=== PATIENT | male | born 1970 | race Caucasian/White ===

== ENCOUNTER 2024-11-25 12:27 | Emergency (ER) | payer MEDICAID, SELFPAY ==
[2024-11-25 13:14] VITALS: BP 121/82; PULSE 92; RESP 18; TEMP 36.8; O2SAT 98; BMI 31.0
--- NOTE | 2024-11-25 13:22 | EDNOTE_ITS ---
ED Recheck Abnl Lab Rx-RME/HPI General Chief Complaint: Recheck/Abnormal Lab/Rx Stated Complaint: Blood sugar high, tired, no power in his legs Time Seen by Provider: 11/25/24 12:42 Arrival date/time: 11/25/24 12:27 RME / HPI RME / HPI narrative: 54-year-old male patient was brought in by family after patient was seen by PCP for evaluation evaluation regarding hyperglycemia. Patient's was noted to have a blood sugar that is elevated patient does not know the number, associated with generalized body weakness, no power in both legs, patient is ambulatory however. Patient also complained of abdominal pain has been ongoing for the last few days, severity moderate. Denies any fever denies any vomiting diarrhea or constipation. Patient is taking his diabetic medication high blood pressure medication with good compliance. Related Data Previous Rx's ?Medication ?Instructions ?Recorded amoxicillin 875 mg-potassium 1 tab PO BID #20 tabs 04/11 clavulanate 125 mg tablet dicyclomine 20 mg tablet 20 mg PO TID PRN abdominal p ain 11/25/24 #20 tabs Allergies Allergy/AdvReac Type Severity Reaction Status Date / Time No Known Allergies Allergy Verified 11/25/24 12:32 Review of Systems Review of Systems Narrative Review of Systems: Review of system reviewed and within normal limits except mentioned in HPI ED Exam Narrative Physical exam: VITAL SIGNS: Reviewed. GENERAL APPEARANCE: Alert and interactive, follows commands, no acute distress, HEAD AND FACE: Non-traumatic. ENT: PERRL, pink conjunctivitis, eyelid no trauma, Mucous membrane moist. NECK: Supple, nontender, no nuchal rigidity. CHEST: No tenderness, no crepitus, no paradoxical movement, no retractions. LUNGS: Clear, well ventilated, symmetric, no rales, no wheezing, no ronchi, no stridor, good breath sounds bilaterally. HEART: Regular rate, regular rhythm, no murmur, no gallops. ABDOMEN: Soft, positive bowel sounds, nondistended, no guarding, nontender, no rebound, no masses, RECTAL: Deferred. GENITAL: Deferred. NEUROLOGICAL: Gross motor function intact sensory function intact, Appropriate for age. MUSCULOSKELETAL: low back nontender, full range of motion. EXTREMITIES: Nontender, full range of motion. SKIN: Color pink, dry, no rash, no lacerations, no abrasions, no contusions. LYMPHATICS: Deferred. Course Quality Measures none Orders Category Date Time Status CT Screening NOW Care 11/25/24 13:26 Active EKG (ED ONLY) *Do not use* NOW Care 11/25/24 13:[address] abdomen pelvis w con Stat Exams 11/25/24 13:26 Completed EKG (ED Only) Stat Exams 11/25/24 13:25 Draft XR chest 1V Stat Exams 11/25/24 13:24 Completed Acetone [Beta Hydroxybutyrate] Stat Lab 11/25/24 13:48 Completed CBC Stat Lab 11/25/24 13:48 Completed Comprehensive Metabolic Panel Stat Lab 11/25/24 13:48 Completed Hemoglobin A1C [Glycohemoglobin w (eAG)] Stat Lab 11/25/24 13:48 Completed Partial Thromboplastin Time Stat Lab 11/25/24 13:48 Completed Urinalysis, C/S if Indicated Stat Lab 11/25/24 14:36 Completed Amoxicillin/Pot Clav 875 [Augmentin 875] Med 11/25/24 16:56 Discontinued 1 tab PO X1 ONE Ringers Lactated 1000 ml [Lactated Ringers] 1,000 ml Med 11/25/24 13:25 Discontinued IV 999 mls/hr Vital Signs Vital signs: Vital Signs Temperature 98.3 F 11/25/24 13:14 Pulse Rate 92 11/25/24 13:14 Respiratory Rate 18 11/25/24 13:14 Blood Pressure 121/82 11/25/24 13:14 Pulse Oximetry (%) 98 11/25/24 13:14 Oxygen Delivery Method Room Air 11/25/24 13:14 Recheck / Abnormal Lab / Rx MDM Narrative MDM Narrative:: 54-year-old male patient was brought in by family after patient was seen by PCP for evaluation evaluation regarding hyperglycemia. Patient's was noted to have a blood sugar that is elevated patient does not know the number, associated with generalized body weakness, no power in both legs, patient is ambulatory however. Patient also complained of abdominal pain has been ongoing for the last few days, severity moderate. Denies any fever denies any vomiting diarrhea or constipation. Patient is taking his diabetic medication high blood pressure medication with good compliance. Patient's workup today showed no leukocytosis however patient's hemoglobin A1c was noted to be 13.2 blood sugar of 326. Patient received IV fluids. CT scan of the abdomen and pelvis showed Minimal acute diverticulitis distal descending colon, no peridiverticular abscess Small pulmonary nodules as above, suggest follow-up Chest x-ray came back unremarkable. EKG showed normal sinus rhythm, ventricular rate of 89 bpm, no ST segment elevation or depression noted. Patient received IV fluids, and Augmentin. Prior to discharge patient told me that his symptoms is better. Will get sent home on Augmentin for 10 days. Was advised to decrease intake of carbohydrates to control the diabetes mellitus. Patient data External records reviewed:: None Clinical information provided by:: patient Social determinants that could affect healthcare access:: none Patient has the following chronic illnesses:: Diabetes mellitus hypertension How is presenting disease/condition affected by chronic disease/condition?: exacerbated by Evaluation data The following diagnostics were reviewed and interpreted by me:: radiology exam(s) Lab and/or radiology exams considered but not ordered:: None Interpretation Summary: See results in [facility] Medications / Prescriptions Medications or Prescriptions considered but not ordered:: None Medication administrations:: Medication Administration History Discontinued Medications Amoxicillin/Clavulanate Potassium (Amoxicillin/Pot Clav 875 Tablet) 1 tab PO X1 ONE Stop: 11/25/24 16:57 Last Admin: 11/25/24 17:17 Dose: 1 tab Documented By: TAMAR Lactated Ringer's (Lactated Ringers) 1,000 mls @ 999 mls/hr IV .Q1H1M ONE Stop: 11/25/24 14:25 Last Infusion: 11/25/24 16:44 Dose: Infused Documented By: Admin: 11/25/24 15:31 Dose: 999 mls/hr Documented By: TAMAR Augmentin, IV fluids Consultations Consultation(s) initiated? (list below): No Diagnosis Recheck Differential Diagnosis: other (Poor diabetes control, hyperglycemia, and abdominal pain, acute diverticulitis) Most likely diagnosis given after review of the tests above:: Acute diverticulitis, poor diabetes control Admission Indicated Admission indicated?: not indicated Admission Request Was there a request for admission?: No Disposition Plan Disposition Plan: Discharge Discharge Attestation Discharge Attestation: The patient was given an opportunity to ask questions and understood the discharge instructions. Discharge instructions specifically effects, indications for sooner follow up or return to the emergency department, and the expected course of current diagnosis. Patient condition: Stable Discharge Plan Plan Patient Disposition: HOME (Self Care) Discharge Disposition comment: stable Prescriptions/Referrals Prescriptions/Med Rec: New amoxicillin-pot clavulanate 875-125 mg tablet 1 tab PO BID Qty: 20 0RF dicyclomine 20 mg tablet 20 mg PO TID PRN (Reason: abdominal pain) Qty: 20 0RF Referrals: Nicole Hanson PA-C [Primary Care Provider] - In 1 week Problem List Clinical Impression: Diverticulitis, Poorly controlled diabetes mellitus Patient/Caregiver Discharge Instructions Discharge Activity: activity as tolerated Education Materials: Diabetes: Activity Tips Additional Instructions: Thank you for the opportunity for serving you today. You are stable for discharged . You are advised to: Follow-up with your PCP in 1 to 2 days Return to ED for worsening of symptoms Increase oral fluids Take medication as prescribed Please decrease your intake of carbohydrates Print Language: Georgian Stand Alone Forms: Kitty Award Info., Patient Portal Info Letter
--- NOTE | 2024-11-25 13:24 | XR_ITS ---
Examination: PA chest single view TECHNIQUE: Upright PA chest single view Date and time: November 25, 2024 1335 hours INDICATIONS: Chest pain weakness fever beginning one week ago. FINDINGS: Normal heart size. The lungs are clear. The osseous structures are intact IMPRESSION: No active disease
--- NOTE | 2024-11-25 13:25 | EKG_ITS ---
[facility] Test Date: 2024-11-25 Pat Name: WILLIAM LANDRY Department: Room: - Gender: Male [employer] Specialist: : [id number] Requested By: Gallo Martins Order Number: [id number] Reading MD: Gallo Martins Measurements Intervals [place] Rate: 89 P: 18 OR: 176 QRS: 44 QRSD: 117 T: 0 QT: 353 QTc: 431 Interpretive Statements SINUS RHYTHM MODERATE INTRAVENTRICULAR CONDUCTION DELAY [110+ ms QRS DURATION] No previous ECG available for comparison /store/S0/[id number].pdf
--- NOTE | 2024-11-25 13:26 | XR_ITS ---
Examination: CT abdomen with intravenous contrast CT pelvis with intravenous contrast 2-D coronal reconstructions 2-D sagittal reconstructions Date and time of exam:November 25, 2024 1555 hours INDICATIONS: Upper abdominal pain beginning 2 years ago. CTDI: vol (mGy) 9.08 DLP: (mGycm) 396 Technique: Multiple axial sections of the abdomen and pelvis have been obtained. 64 slice high-resolution scanner used. 3 mm axial sections have been obtained, post intravenous injection 60 cc [id number] 2-D sagittal, coronal reconstructions obtained. Low dose protocols were performed. One or more of the following dose reduction techniques were used; automated exposure control, adjustment of the mA and/or KV according to patient size, use of iterative reconstruction technique. Findings: 5 mm pulmonary nodule in the right upper lobe image 4 2 mm pleural-based pulmonary nodule lingular segment image 30 Diffuse fatty hydration throughout the liver Absent gallbladder No extra hepatic biliary tract dilatation No pancreatitis Spleen not enlarged No renal or ureteral calculi, no hydronephrosis No bowel obstruction Colonic diverticulosis Minimal acute diverticulitis distal descending colon, coronal image 61, axial image 175 No peridiverticular abscess Urinary bladder intact Mild prostatomegaly Fat-containing right inguinal hernia Moderate osteopenia Normal appendix IMPRESSION: Minimal acute diverticulitis distal descending colon, no peridiverticular abscess Small pulmonary nodules as above, suggest follow-up
[2024-11-25 14:02] LABS: Basophils # (Auto) 0.0 Thou/mm3 (0.0-0.2); Basophils % (Auto) 0 % (0-2.5); Eosinophils # (Auto) 0.3 Thou/mm3 (0.0-0.5); Eosinophils % (Auto) 4 % (0-10); Hematocrit 47.4 % (41.0-53.0); Hemoglobin 16.6 g/dL (13.5-16.0); Immature Granulocytes Auto 0.02 Thou/mm3 (0.00-0.00); Lymphocytes # (Auto) 2.0 Thou/mm3 (1.0-4.8); Lymphocytes % (Auto) 30 % (10-50); Mean Corpuscular HGB Conc 35.0 g/dl (31.0-37.0); Mean Corpuscular Hemoglobin 28.9 pg (25.0-35.0); Mean Corpuscular Volume 82 fL (80-100); Monocytes # (Auto) 0.6 Thou/mm3 (0.0-0.8); Monocytes % (Auto) 9 % (0-12); Neutrophils # (Auto) 3.8 Thou/mm3 (1.8-7.7); Neutrophils % (Auto) 57 % (37-80); Nucleated Red Blood Cell # 0.00 Thou/mm3 (0.00-0.00); Nucleated Red Blood Cell % 0 /100 WBC (0); Platelet Count 289 Thou/mm3 (140-440); RDW Standard Deviation 37.5 fL (35.1-43.9); Red Blood Count 5.75 Miln/mm3 (4.50-5.90); White Blood Count 6.6 Thou/mm3 (3.8-10.6)
[2024-11-25 14:03] LABS: Beta Hydroxybutyrate 0.2 mmol/L (<0.6)
[2024-11-25 14:13] LABS: Glucose Estimated Average 332 mg/dL (80-131); Hemoglobin A1C 13.2 % Hgb (4.8-6.0)
[2024-11-25 14:16] LABS: Partial Thromboplastin Time 26.9 Seconds (22.0-36.0)
[2024-11-25 14:25] LABS: Alanine Aminotransferase 99 U/L (10-49); Albumin, Serum 4.4 gm/dL (3.5-5.0); Albumin/Globulin Ratio 1.5 (1.2-2.2); Alkaline Phosphatase 97 U/L (46-116); Anion Gap 10 (7-16); Aspartate Amino Transferase 53 U/L (0-34); BUN/Creatinine Ratio 10 Ratio (12-20); Bilirubin,Total 0.7 mg/dL (0.3-1.2); Blood Urea Nitrogen 11 mg/dL (9-23); Calcium 9.2 mg/dL (8.3-10.6); Calcium (Corrected) 9.2 mg/dL (8.5-10.1); Carbon Dioxide 28.8 mMol/L (20.0-31.0); Chloride 95 mMol/L (98-107); Creatinine (Component) 1.1 mg/dL (0.6-1.3); Estimated Creatinine Clearance 72.5 mL/min (>60); Globulin 2.9 gm/dL (2.3-3.5); Glucose 326 mg/dL (74-106); Osmolality,Calculated 280 (275-295); Potassium 4.0 mMol/L (3.4-5.1); Sodium 134 mMol/L (136-145); Total Protein 7.3 gm/dL (5.7-8.2); eGFR > 60 See Note
[2024-11-25 14:46] LABS: Collection Type, Urine Clean Catch; Squamous Epithelial Cell,Urine 0 /hpf (0-5)
[2024-11-25 15:12] LABS: Bilirubin,Urine Negative (Negative); Blood,Urine Negative (Negative); Clarity,Urine Clear (Clear/Hazy); Color,Urine Lt-Yellow (Lt Yel-Yel); Culture Indicated,Urine Not Indicated; Glucose, Urine 4+ (Negative); Ketones,Urine Negative (Negative); Leukocyte Esterase,Urine Negative (Negative); Nitrite,Urine Negative (Negative); PH,Urine 6.0 (5.0-7.0); Protein,Urine Negative (Neg - Trace); RBC,Urine 1 /hpf (0-3); Specific Gravity,Urine 1.024 (1.001-1.035); Urobilinogen,Urine Negative mg/dL (0.0-1.0); WBC,Urine < 1 /hpf (0-5)
[2024-11-25] MEDS: RINGERS LACTATED 1000 ML 1,000 ML 999 ML IV (15:31)
[2024-11-25] MEDS: AMOXICILLIN/POT CLAV 875 TABLET 1 TAB PO (17:17)
[2024-11-25 17:36] VITALS: BP 124/85; PULSE 70; RESP 19; TEMP 36.4; O2SAT 97
== END 2024-11-25 17:59 | disposition home or self-care (01) ==
PROVIDERS: Emergency Provider Nurse Practitioner Family; PCP Physician Assistant
DX: E11.65 Type 2 diabetes mellitus with hyperglycemia (principal); K57.32 Diverticulitis of large intestine without perforation or abscess without bleeding; R91.8 Other nonspecific abnormal finding of lung field; R07.9 Chest pain, unspecified; R53.1 Weakness; R50.9 Fever, unspecified; I45.89 Other specified conduction disorders; I10 Essential (primary) hypertension
CPT/HCPCS: 36415; 71045; 74177; 80053; 81001; 82010; 83036; 85025; 85730; 93005; 96360; 99283; A4649; J7120; Q9967; A9270